=== PATIENT | male | born 1955 | race Two or more races ===

== ENCOUNTER 2023-04-01 13:39 | Outpatient (CLI) | payer MEDICARE, BC ==
[2023-04-01 15:15] LABS: ALT (SGPT) 44 U/L (8-55); AST (SGOT) 65 U/L (5-34); Albumin 3.8 g/dL (3.4-4.8); Alkaline Phosphatase 344 U/L (40-110); Anion Gap 19 mmol/L (10-20); BUN (Urea Nitrogen) 27 mg/dL (8.4-25.7); Bilirubin, Direct 0.4 mg/dL (0.1-0.3); Bilirubin, Total 0.8 mg/dL (0.2-1.2); Calc. Creatinine Clearance 0 mL/min (70-130); Calcium 9.3 mg/dL (7.8-10.44); Carbon Dioxide 22 mmol/L (23-31); Chloride 100 mmol/L (98-107); Estimated GFR 52; Globulin 3.3 g/dL (2.4-3.5); Glucose 171 mg/dL (80-115); Protein, Total 7.1 g/dL (5.8-8.1); Sodium 136 mmol/L (136-145)
[2023-04-01 15:21] LABS: #Eosinphils 0.1 10x3/uL (0.0-0.5); #Monocytes 1.4 10x3/uL (0.0-1.1); #Neutrophils 7.4 10x3/uL (1.5-8.4); %Basophils 0.4 % (0.0-2.0); %Lymphocytes 7.9 % (18.0-47.0); %Monocytes 14.4 % (0.0-10.0); Hematocrit 37.8 % (38.8-50.0); Hemoglobin 12.1 g/dL (13.5-17.5); Mean Corpuscular Hemoglobin 29.2 pg (27.0-33.0); Mean Corpuscular Volume 91.1 fl (81.2-95.1); Mean Platelet Volume 10.5 fl (7.4-10.4); Platelet Count 281 10x3/uL (150-450); RBC Distribution Width 14.5 % (11.5-14.5); Red Blood Cell (RBC) Count 4.15 10x6/uL (4.32-5.72); White Blood Cell (WBC) Count 9.7 10x3/uL (3.5-10.5)
[2023-04-01 15:26] LABS: INR-International Normal Ratio 1.2; PTT 26.5 sec (22.0-33.0); Prothrombin Time 12.4 sec (9.5-12.1)
== END 2023-04-01 13:40 | disposition home or self-care (01) ==
LOC: CSHLAB 13:39
PROVIDERS: ATTEND Surgery
DX: Z01.818 Encounter for other preprocedural examination (principal); C78.7 Secondary malignant neoplasm of liver and intrahepatic bile duct
CPT/HCPCS: 80053; 80076; 85025; 85610; 85730; 93005; 93010

== ENCOUNTER 2023-04-05 05:38 | Day surgery (SDC) | payer MEDICARE, BC ==
[2023-04-01 14:06] VITALS: BMI 30.1
[2023-04-02 19:49] LABS: Hemoglobin A1c 8.1 % (4.0-6.0)
[2023-04-05] MEDS ORDERED: Bupivacaine PF 0.5% 30 ML VIAL ONE (06:24)
[2023-04-05] MEDS ORDERED: EPINEPHrine 1 MG/ML VIAL ONE (06:24)
[2023-04-05] MEDS ORDERED: CEFAZOLIN 2 GM VIAL ONE (06:55)
[2023-04-05] MEDS ORDERED: PROPOFOL 40 ML ONE (06:57)
[2023-04-05] MEDS ORDERED: fentaNYL 50 mcg/mL 1 mL Vial ONE ×2 (06:57→07:11)
[2023-04-05] MEDS ORDERED: Ondansetron PF 4 MG/2 ML Vial ONE (06:57)
[2023-04-05] MEDS ORDERED: Lidocaine 2% PF 5 ML VIAL ONE (06:57)
[2023-04-05] MEDS ORDERED: Sevoflurane 250 ML INH ANEST BOTTLE ONE (07:08)
[2023-04-05] MEDS ORDERED: Acetaminophen 325 MG TAB PO PRN (07:42)
[2023-04-05] MEDS ORDERED: HYDROcodone/Acetaminophen 5/325 mg Tablet PO PRN (07:42)
[2023-04-05] MEDS ORDERED: HYDROcodone/Acetaminophen 5/325 mg Tablet ONE (08:05)
== END 2023-04-05 08:35 | disposition home or self-care (01) ==
LOC: CSHSDC 05:38
PROVIDERS: ATTEND Surgery
PROC: 0JH60WZ Insertion of Totally Implantable Vascular Access Device into Chest Subcutaneous Tissue and Fascia, Open Approach (ICD-10-PCS; principal; 2023-04-05)
DX: C78.7 Secondary malignant neoplasm of liver and intrahepatic bile duct (principal); E11.9 Type 2 diabetes mellitus without complications; G47.33 Obstructive sleep apnea (adult) (pediatric); Z79.899 Other long term (current) drug therapy
CPT/HCPCS: 36561; 71045; 83036; J0171; J3010; C1788; J1642; J2001; J2405; J2704; S0020

== ENCOUNTER 2023-04-20 09:00 | Emergency (ER) | payer MEDICARE, BC ==
[2023-04-20] MEDS ORDERED: HYDROcodone/Acetaminophen 5/325 mg Tablet ONE (10:26)
== END 2023-04-20 11:06 | disposition home or self-care (01) ==
LOC: CSHERS 09:00
DX: C25.9 Malignant neoplasm of pancreas, unspecified (principal); R18.8 Other ascites; E11.9 Type 2 diabetes mellitus without complications
CPT/HCPCS: 99283